=== PATIENT | female | born 2000 | race Caucasian/White ===

== ENCOUNTER 2019-01-20 13:01 | Emergency (ER) | payer OTHER, MEDICAID, SELFPAY ==
[2019-01-20 13:34] VITALS: BP 120/76; PULSE 80; RESP 16; TEMP 37.1; O2SAT 99; BMI 40.1
[2019-01-20 14:03] LABS: Add Manual Diff / Slide Review NO; Basophils Absolute Auto 100 /uL (0-100); Basophils Percent Auto 0.6 % (0-2); Eosinophils Absolute Auto 0 /uL (0-450); Eosinophils Percent Auto 0.3 % (2-4); Hematocrit 46.8 % (36-46); Hemoglobin 14.9 g/dL (12.0-16.0); Lymphocytes Absolute Auto 2500 /uL (1100-4500); Lymphocytes Percent Auto 20.2 % (25-40); Mean Corpuscular HGB Conc 31.7 % (30-36); Mean Corpuscular Hemoglobin 26.2 PG (26-34); Mean Corpuscular Volume 82.7 fL (80-100); Monocytes Absolute Auto 700 /uL (0-900); Monocytes Percent Auto 5.3 % (3-14); Neutrophils Absolute Auto 9200 /uL (1500-7000); Neutrophils Percent Auto 73.6 % (50-75); Platelet Count 455 X10^3/uL (150-400); Red Blood Cell Count 5.67 X10^6/uL (4.0-5.2); Red Cell Distribution Width 13.5 % (11.6-14.8); White Blood Cell Count 12.5 X10^3/uL (4.5-11.0)
[2019-01-20 14:11] LABS: Alanine Aminotransferase 20 IU/L (9-52); Albumin 4.7 g/dL (3.5-5.0); Albumin Globulin Ratio 1.2 (1.0-2.8); Alkaline Phosphatase 42 U/L (38-126); Aspartate Aminotransferase 25 IU/L (14-36); BUN Creatinine Ratio 16.7 (6-22); Bilirubin Total 0.6 mg/dL (0.2-1.3); Blood Urea Nitrogen 10 mg/dL (7-17); Calcium 9.5 mg/dL (8.4-10.2); Carbon Dioxide 25 mmol/L (22-32); Chloride 105 mmol/L (98-107); Estimated Glomerular Filt Rate > 60.0 mL/min (>60); Globulin 3.9 g/dL (1.7-4.1); Glucose 94 mg/dL (70-100); HEMOLYSIS 34 (0-50); Lipase 87 U/L (23-300); Potassium 3.9 mmol/L (3.4-5.1); Sodium 141 mmol/L (137-145); Total Protein 8.6 g/dL (6.3-8.2)
--- NOTE | 2019-01-20 15:55 | ED.ABDPAIN ---
HPI - Abdominal Pain General Chief Complaint: Abdominal Pain Stated Complaint: mid and left quad pain x2 days Time Seen by Provider: 01/20/19 15:54 Source: patient and family (Mother) Mode of arrival: ambulatory Limitations: no limitations History of Present Illness HPI narrative: This is a 18-year-old female comes to the emergency department with complaint of abdominal pain patient states that sort of epigastric radiates a little bit towards the left side. It is all in the front none in the back. She does not any flank pain. Patient states no fevers. She has occasionally felt nauseated, no vomiting. She denies any diarrhea, no constipation, no black or bloody stools. She denies any urinary symptoms such as urgency frequency or dysuria. She denies any vaginal bleeding or discharge. States she did just finished her period recently. She had her typical cramping but nothing else new. She has had these symptoms once in the past she was seen at [facility] had a CT scan which was negative. She has not followed up any since then. The most recent episode started on and has continued, today was little bit worse so she came in for a bowel. She did ask if weight loss can cause any of these issues she has had 59 lb weight loss since April of 2018. She states that she also eats a lot of hot sauce. Related Data Allergies Allergy/AdvReac Type Severity Reaction Status Date / Time No Known Drug Allergies Allergy Verified 01/20/19 13:34 Review of Systems Review of Systems ROS Unobtainable: All systems reviewed & are unremarkable except as noted in HPI and below Constitutional Denies chills, Denies fever(s), Denies lethargy and Denies weakness Gastrointestinal Gastrointestinal: Reports abdominal pain, Denies melena, Denies hematochezia, Denies change in bowel habits, Denies tenesmus, Denies change in stool character, Denies constipation, Denies diarrhea, Reports nausea (Not regularly) and Denies vomiting Genitourinary Denies abnormal menses, Denies abnormal vaginal bleeding, Denies hematuria, Denies dysuria, Denies pelvic pain, Denies flank pain, Denies urinary incontinence, Denies urinary hesitancy, Denies urinary urgency and Denies vaginal discharge Musculoskeletal Denies back pain Neurologic Denies weakness [facility] Social History Smoking Status: Never smoker Social History Smoking Status: Never smoker Exam Narrative Exam Narrative: GENERAL: Alert and oriented x three, obese, well-appearing female in no acute distress HEENT: Head normocephalic, atraumatic, EOMI, pupils reactive, face symmetric, moist mucous membranes NECK: Supple, full range of motion CARDIOVASCULAR: Regular rate and rhythm without murmurs, rubs or gallops. RESPIRATORY: Breath sounds equal bilaterally, no wheezes rales or rhonchi. ABDOMEN: Soft, very mildly in the left upper quadrant. Normoactive bowel sounds all 4 quadrants. No guarding or rebound, rigidity, no mass : No CVA tenderness EXTREMITIES: Normal range of motion, no clubbing or edema. Neurovascularly intact NEUROLOGICAL: Cranial nerves II through XII grossly intact. Moving all extremities SKIN: Warm, dry, no petechiae, no rashes or lesions. Initial Vital Signs Initial Vital Signs: Vital Signs Temperature 98.7 F 01/20/19 13:34 Pulse Rate 80 01/20/19 13:34 Respiratory Rate 16 01/20/19 13:34 Blood Pressure 120/76 01/20/19 13:34 Pulse Oximetry 99 01/20/19 13:34 Course Orders Ordered: ED Orders 01/20/19 13:45 Complete Blood Count AUTO DIFF Stat Comprehensive Metabolic Panel Stat Lipase Stat Urine Culture Stat Urine Microscopic Stat 01/20/19 16:09 US abdomen complete Stat Discontinued Medications Ketorolac Tromethamine (Toradol) 30 mg IV NOW ONE Stop: 01/20/19 16:10 Last Admin: 01/20/19 16:16 Dose: 30 mg Vital Signs - 8 hr 01/20/19 13:34 01/20/19 16:29 01/20/19 18:07 Temperature 98.7 F Pulse Rate 80 78 85 Respiratory Rate 16 15 20 Blood Pressure 120/76 121/69 Blood Pressure [Right Arm] 106/62 Pulse Oximetry 99 99 99 MDM - Abdominal Pain Lab Data Attestation: I reviewed the patient's lab results. Result diagrams: 01/20/19 13:45 01/20/19 13:45 Lab Results 01/20/19 01/20/19 01/20/19 Range/Units 13:45 13:45 13:45 WBC 12.5 H (4.5-11.0) X10^3/uL RBC 5.67 H (4.0-5.2) X10^6/uL Hgb 14.9 (12.0-16.0) g/dL Hct 46.8 H (36-46) % MCV 82.7 (80-100) fL MCH 26.2 (26-34) PG MCHC 31.7 (30-36) % RDW 13.5 (11.6-14.8) % Plt Count 455 H (150-400) X10^3/uL Neut % (Auto) 73.6 (50-75) % Lymph % (Auto) 20.2 L (25-40) % [place] % (Auto) 5.3 (3-14) % Eos % (Auto) 0.3 L (2-4) % Baso % (Auto) 0.6 (0-2) % Neut # (Auto) 9200 H (9586-4545) /uL Lymph # (Auto) 2500 (1616-0070) /uL [place] # (Auto) 700 (0-900) /uL Eos # (Auto) 0 (0-450) /uL Baso # (Auto) 100 (0-100) /uL Sodium 141 (137-145) mmol/L Potassium 3.9 (3.4-5.1) mmol/L Chloride 105 (98-107) mmol/L Carbon Dioxide 25 (22-32) mmol/L BUN 10 (7-17) mg/dL Creatinine 0.60 (0.52-1.04) mg/dL Estimated GFR > 60.0 (>60) mL/min BUN/Creatinine Ratio 16.7 (6-22) Glucose 94 (70-100) mg/dL Calcium 9.5 (8.4-10.2) mg/dL Total Bilirubin 0.6 (0.2-1.3) mg/dL AST 25 (14-36) IU/L ALT 20 (9-52) IU/L Alkaline Phosphatase 42 (38-126) U/L Total Protein 8.6 H (6.3-8.2) g/dL Albumin 4.7 (3.5-5.0) g/dL Globulin 3.9 (1.7-4.1) g/dL Albumin/Globulin Ratio 1.2 (1.0-2.8) Lipase 87 (23-300) U/L Urine RBC 0-1/hpf (0-5/HPF) Urine WBC 1-5/hpf (0-5/HPF) Ur Squamous Epith Cells 0-1 /hpf (0-5/HPF) Urine Bacteria Occasional (0-1) (None) Ur Culture Indicated? Specimen cultured Point of care testing: Point of Care Testing Test Results Negative Urine Dip Bedside Urine Glucose Negative Bedside Urine Bilirubin - Negative Bedside Urine Ketone - Negative Urine Specific [place] 1.015 Bedside Urine Occult Blood - Negative Bedside Urine pH 7.5 Bedside Urine Protein - Negative Bedside Urine Urobilinogen - Negative Bedside Urine Nitrite - Negative Bedside Urine Leukocytes +/- 15 Esterase Imaging Data US - abdomen: Radiologist's impression: prelim read is negative. [address] [address] Ultrasound Report Signed Patient: Edi Chappell PMR#: [id number] : 2000Acct:[id number] Age/Sex: 18 / FDate of Service: 01/20/19 Loc: ED Accession Number: [id number] Procedure: US abdomen complete Ordering Provider: Esther Nieves D.O. PROCEDURE: US ABDOMEN COMPLETE INDICATIONS: EPIGASTRIC/LEFT SIDE PAIN TECHNIQUE: Real-time scanning was performed of the abdominal and retroperitoneal organs, with image documentation. COMPARISON: None. FINDINGS: Liver: Liver is normal in size and homogeneous in echotexture. Gallbladder: No findings of gallstones or sludge are seen. The gallbladder wall is not thickened, measuring 3 mm or less. No specific pericholecystic fluid is seen. The sonographic Rubin sign is negative. Biliary ducts: Intrahepatic bile ducts are non-dilated. Extrahepatic bile duct caliber measures 4 mm. Normal is 6-7 mm or less in diameter, or 10 mm or less post-cholecystectomy. Pancreas: Not seen, obscured by overlying bowel gas. Spleen: Spleen is normal in size and homogeneous in echotexture. Kidneys: Kidneys are normal in size and echotexture. Right kidney measures 11.2 cm long; left kidney measures 10.6 cm long. No hydronephrosis or nephrolithiasis. No solid masses. The renal cortex measures within normal limits for thickness. Aorta: Visualized aorta is normal in caliber at less than 3 cm. Iliacs: Proximal common iliac arteries are normal in caliber at less than 2.5 cm. IVC: Intrahepatic inferior vena cava is patent. Miscellaneous: No free abdominal fluid. IMPRESSION: Normal abdominal ultrasound, without an imaging explanation of the patient's presenting history of epigastric/left-sided pain. Dictated by: Kris Garnica M.D. on 01/20/2019 at 16:28 Approved by: Kris Garnica M.D. on 01/20/2019 at 16:30 [facility] Narrative Medical decision making narrative: Patient's lab work shows a slightly elevated white count at 12, urine shows some leukocyte esterase. Patient has not had any urinary symptoms, she is sort of left upper abdominal pain as well as into the left side. We discussed the recent negative CT a month ago with the same symptoms I would defer ultrasound today to the decrease her radiation risk as her abdominal exam is benign. She has barely any tenderness and I would not appreciated any unless she verbally told me. She does not make any facial changes when palpating. Rest of patient's lab work does not show any acute changes. Ultrasound is negative. Microscopic urine does not show any clear changes was sent for culture. Updated patient. She is comfortable returning home pain was improved after Toradol kind of increased again after she had the ultrasound. We discussed signs and symptoms reasons to return. Her and mother both at bedside and comfortable with this. Discharge Plan Departure Patient Disposition: Home Clinical Impression: Abdominal pain Discharge Date/Time: 01/20/19 18:08 Interventions: ED Discharge Assessment Last Done: 01/20/19 18:07 Instructions: DI for Abdominal Pain-Adult Activity Restrictions/Additional Instructions: Follow-up with primary care in the next week for recheck. If you continue to have symptoms you may need endoscopy or colonoscopy for follow-up with OBGYN as there are several potential causes for your pain. Your urine shows leukocyte esterase but no other clear signs of infection, your urine was sent for culture and will result in 48hours. If positive you will receive a call back to start you on antibiotics. You may take up to 800 mg of ibuprofen every 8 hours and or Tylenol up to a 1000 mg every 8 hours as needed for pain. Return to the emergency department for fevers greater than 100.4 F, rapidly worsening pain, persistent vomiting, black or bloody stools, new flank pain, back pain, increasing abdominal pain, or any other new or concerning symptoms.
--- NOTE | 2019-01-20 16:09 | DI.US.S_ITS ---
PROCEDURE: US ABDOMEN COMPLETE INDICATIONS: EPIGASTRIC/LEFT SIDE PAIN TECHNIQUE: Real-time scanning was performed of the abdominal and retroperitoneal organs, with image documentation. COMPARISON: None. FINDINGS: Liver: Liver is normal in size and homogeneous in echotexture. Gallbladder: No findings of gallstones or sludge are seen. The gallbladder wall is not thickened, measuring 3 mm or less. No specific pericholecystic fluid is seen. The sonographic Rubin sign is negative. Biliary ducts: Intrahepatic bile ducts are non-dilated. Extrahepatic bile duct caliber measures 4 mm. Normal is 6-7 mm or less in diameter, or 10 mm or less post-cholecystectomy. Pancreas: Not seen, obscured by overlying bowel gas. Spleen: Spleen is normal in size and homogeneous in echotexture. Kidneys: Kidneys are normal in size and echotexture. Right kidney measures 11.2 cm long; left kidney measures 10.6 cm long. No hydronephrosis or nephrolithiasis. No solid masses. The renal cortex measures within normal limits for thickness. Aorta: Visualized aorta is normal in caliber at less than 3 cm. Iliacs: Proximal common iliac arteries are normal in caliber at less than 2.5 cm. IVC: Intrahepatic inferior vena cava is patent. Miscellaneous: No free abdominal fluid. IMPRESSION: Normal abdominal ultrasound, without an imaging explanation of the patient's presenting history of epigastric/left-sided pain. Dictated by: Kris Garnica M.D. on 01/20/2019 at 16:28 Approved by: Kris Garnica M.D. on 01/20/2019 at 16:30
--- NOTE | 2019-01-20 16:13 | ED_ITS ---
HPI - Abdominal Pain General Chief Complaint: Abdominal Pain Stated Complaint: mid and left quad pain x2 days Time Seen by Provider: 01/20/19 15:54 Source: patient and family (Mother) Mode of arrival: ambulatory Limitations: no limitations History of Present Illness HPI narrative: This is a 18-year-old female comes to the emergency department with complaint of abdominal pain patient states that sort of epigastric radiates a little bit towards the left side. It is all in the front none in the back. She does not any flank pain. Patient states no fevers. She has occasionally felt nauseated, no vomiting. She denies any diarrhea, no constipation, no black or bloody stools. She denies any urinary symptoms such as urgency frequency or dysuria. She denies any vaginal bleeding or discharge. States she did just finished her period recently. She had her typical cramping but nothing else new. She has had these symptoms once in the past she was seen at [facility] had a CT scan which was negative. She has not followed up any since then. The most recent episode started on and has continued, today was little bit worse so she came in for a bowel. She did ask if weight loss can cause any of these issues she has had 59 lb weight loss since April of 2018. She states that she also eats a lot of hot sauce. Related Data Allergies Allergy/AdvReac Type Severity Reaction Status Date / Time No Known Drug Allergies Allergy Verified 01/20/19 13:34 Review of Systems Review of Systems ROS Unobtainable: All systems reviewed & are unremarkable except as noted in HPI and below Constitutional Denies chills, Denies fever(s), Denies lethargy and Denies weakness Gastrointestinal Gastrointestinal: Reports abdominal pain, Denies melena, Denies hematochezia, Denies change in bowel habits, Denies tenesmus, Denies change in stool character, Denies constipation, Denies diarrhea, Reports nausea (Not regularly) and Denies vomiting Genitourinary Denies abnormal menses, Denies abnormal vaginal bleeding, Denies hematuria, Denies dysuria, Denies pelvic pain, Denies flank pain, Denies urinary incontinence, Denies urinary hesitancy, Denies urinary urgency and Denies vaginal discharge Musculoskeletal Denies back pain Neurologic Denies weakness [facility] Social History Smoking Status: Never smoker Social History Smoking Status: Never smoker Exam Narrative Exam Narrative: GENERAL: Alert and oriented x three, obese, well-appearing female in no acute distress HEENT: Head normocephalic, atraumatic, EOMI, pupils reactive, face symmetric, moist mucous membranes NECK: Supple, full range of motion CARDIOVASCULAR: Regular rate and rhythm without murmurs, rubs or gallops. RESPIRATORY: Breath sounds equal bilaterally, no wheezes rales or rhonchi. ABDOMEN: Soft, very mildly in the left upper quadrant. Normoactive bowel sounds all 4 quadrants. No guarding or rebound, rigidity, no mass : No CVA tenderness EXTREMITIES: Normal range of motion, no clubbing or edema. Neurovascularly intact NEUROLOGICAL: Cranial nerves II through XII grossly intact. Moving all extremities SKIN: Warm, dry, no petechiae, no rashes or lesions. Initial Vital Signs Initial Vital Signs: Vital Signs Temperature 98.7 F 01/20/19 13:34 Pulse Rate 80 01/20/19 13:34 Respiratory Rate 16 01/20/19 13:34 Blood Pressure 120/76 01/20/19 13:34 Pulse Oximetry 99 01/20/19 13:34 Course Orders Ordered: ED Orders 01/20/19 13:45 Complete Blood Count AUTO DIFF Stat Comprehensive Metabolic Panel Stat Lipase Stat Urine Culture Stat Urine Microscopic Stat 01/20/19 16:09 US abdomen complete Stat Discontinued Medications Ketorolac Tromethamine (Toradol) 30 mg IV NOW ONE Stop: 01/20/19 16:10 Last Admin: 01/20/19 16:16 Dose: 30 mg Vital Signs - 8 hr 01/20/19 13:34 01/20/19 16:29 01/20/19 18:07 Temperature 98.7 F Pulse Rate 80 78 85 Respiratory Rate 16 15 20 Blood Pressure 120/76 121/69 Blood Pressure [Right Arm] 106/62 Pulse Oximetry 99 99 99 MDM - Abdominal Pain Lab Data Attestation: I reviewed the patient's lab results. Result diagrams: 01/20/19 13:45 01/20/19 13:45 Lab Results 01/20/19 01/20/19 01/20/19 Range/Units 13:45 13:45 13:45 WBC 12.5 H (4.5-11.0) X10^3/uL RBC 5.67 H (4.0-5.2) X10^6/uL Hgb 14.9 (12.0-16.0) g/dL Hct 46.8 H (36-46) % MCV 82.7 (80-100) fL MCH 26.2 (26-34) PG MCHC 31.7 (30-36) % RDW 13.5 (11.6-14.8) % Plt Count 455 H (150-400) X10^3/uL Neut % (Auto) 73.6 (50-75) % Lymph % (Auto) 20.2 L (25-40) % [place] % (Auto) 5.3 (3-14) % Eos % (Auto) 0.3 L (2-4) % Baso % (Auto) 0.6 (0-2) % Neut # (Auto) 9200 H (7513-6989) /uL Lymph # (Auto) 2500 (9646-7143) /uL [place] # (Auto) 700 (0-900) /uL Eos # (Auto) 0 (0-450) /uL Baso # (Auto) 100 (0-100) /uL Sodium 141 (137-145) mmol/L Potassium 3.9 (3.4-5.1) mmol/L Chloride 105 (98-107) mmol/L Carbon Dioxide 25 (22-32) mmol/L BUN 10 (7-17) mg/dL Creatinine 0.60 (0.52-1.04) mg/dL Estimated GFR > 60.0 (>60) mL/min BUN/Creatinine Ratio 16.7 (6-22) Glucose 94 (70-100) mg/dL Calcium 9.5 (8.4-10.2) mg/dL Total Bilirubin 0.6 (0.2-1.3) mg/dL AST 25 (14-36) IU/L ALT 20 (9-52) IU/L Alkaline Phosphatase 42 (38-126) U/L Total Protein 8.6 H (6.3-8.2) g/dL Albumin 4.7 (3.5-5.0) g/dL Globulin 3.9 (1.7-4.1) g/dL Albumin/Globulin Ratio 1.2 (1.0-2.8) Lipase 87 (23-300) U/L Urine RBC 0-1/hpf (0-5/HPF) Urine WBC 1-5/hpf (0-5/HPF) Ur Squamous Epith Cells 0-1 /hpf (0-5/HPF) Urine Bacteria Occasional (0-1) (None) Ur Culture Indicated? Specimen cultured Point of care testing: Point of Care Testing Test Results Negative Urine Dip Bedside Urine Glucose Negative Bedside Urine Bilirubin - Negative Bedside Urine Ketone - Negative Urine Specific [place] 1.015 Bedside Urine Occult Blood - Negative Bedside Urine pH 7.5 Bedside Urine Protein - Negative Bedside Urine Urobilinogen - Negative Bedside Urine Nitrite - Negative Bedside Urine Leukocytes +/- 15 Esterase Imaging Data US - abdomen: Radiologist's impression: prelim read is negative. [address] [address] Ultrasound Report Signed Patient: Edi Chappell PMR#: [id number] : 2000Acct:[id number] Age/Sex: 18 / FDate of Service: 01/20/19 Loc: ED Accession Number: [id number] Procedure: US abdomen complete Ordering Provider: Esther Nieves D.O. PROCEDURE: US ABDOMEN COMPLETE INDICATIONS: EPIGASTRIC/LEFT SIDE PAIN TECHNIQUE: Real-time scanning was performed of the abdominal and retroperitoneal organs, with image documentation. COMPARISON: None. FINDINGS: Liver: Liver is normal in size and homogeneous in echotexture. Gallbladder: No findings of gallstones or sludge are seen. The gallbladder wall is not thickened, measuring 3 mm or less. No specific pericholecystic fluid is seen. The sonographic Rubin sign is negative. Biliary ducts: Intrahepatic bile ducts are non-dilated. Extrahepatic bile duct caliber measures 4 mm. Normal is 6-7 mm or less in diameter, or 10 mm or less post-cholecystectomy. Pancreas: Not seen, obscured by overlying bowel gas. Spleen: Spleen is normal in size and homogeneous in echotexture. Kidneys: Kidneys are normal in size and echotexture. Right kidney measures 11.2 cm long; left kidney measures 10.6 cm long. No hydronephrosis or nephrolithiasis. No solid masses. The renal cortex measures within normal limits for thickness. Aorta: Visualized aorta is normal in caliber at less than 3 cm. Iliacs: Proximal common iliac arteries are normal in caliber at less than 2.5 cm. IVC: Intrahepatic inferior vena cava is patent. Miscellaneous: No free abdominal fluid. IMPRESSION: Normal abdominal ultrasound, without an imaging explanation of the patient's presenting history of epigastric/left-sided pain. Dictated by: Kris Garnica M.D. on 01/20/2019 at 16:28 Approved by: Kris Garnica M.D. on 01/20/2019 at 16:30 [facility] Narrative Medical decision making narrative: Patient's lab work shows a slightly elevated white count at 12, urine shows some leukocyte esterase. Patient has not had any urinary symptoms, she is sort of left upper abdominal pain as well as into the left side. We discussed the recent negative CT a month ago with the same symptoms I would defer ultrasound today to the decrease her radiation risk as her abdominal exam is benign. She has barely any tenderness and I would not appreciated any unless she verbally told me. She does not make any facial changes when palpating. Rest of patient's lab work does not show any acute changes. Ultrasound is negative. Microscopic urine does not show any clear changes was sent for culture. Updated patient. She is comfortable returning home pain was improved after Toradol kind of increased again after she had the ultrasound. We discussed signs and symptoms reasons to return. Her and mother both at bedside and comfortable with this. Discharge Plan Departure Patient Disposition: Home Clinical Impression: Abdominal pain Discharge Date/Time: 01/20/19 18:08 Interventions: ED Discharge Assessment Last Done: 01/20/19 18:07 Instructions: DI for Abdominal Pain-Adult Activity Restrictions/Additional Instructions: Follow-up with primary care in the next week for recheck. If you continue to have symptoms you may need endoscopy or colonoscopy for follow-up with OBGYN as there are several potential causes for your pain. Your urine shows leukocyte esterase but no other clear signs of infection, your urine was sent for culture and will result in 48hours. If positive you will receive a call back to start you on antibiotics. You may take up to 800 mg of ibuprofen every 8 hours and or Tylenol up to a 1000 mg every 8 hours as needed for pain. Return to the emergency department for fevers greater than 100.4 F, rapidly worsening pain, persistent vomiting, black or bloody stools, new flank pain, back pain, increasing abdominal pain, or any other new or concerning symptoms.
[2019-01-20] MEDS: KETOROLAC 60 MG/2 ML VIAL 30 MG IV (16:16)
[2019-01-20 16:29] VITALS: BP 106/62; PULSE 78; RESP 15; O2SAT 99
[2019-01-20 17:22] LABS: RBC Urine 0-1/HPF (0-5/HPF)
[2019-01-20 17:23] LABS: Bacteria Urine Occasional (0-1); Culture Indicated Urine Specimen Cultured; Squamous Epithelial Cell Urine 0-1 /HPF (0-5/HPF); WBC Urine 1-5/HPF (0-5/HPF)
[2019-01-20 18:07] VITALS: BP 121/69; PULSE 85; RESP 20; O2SAT 99
== END 2019-01-20 18:08 | disposition home or self-care (01) ==
PROVIDERS: Emergency Provider Emergency Medicine
DX: R10.9 Unspecified abdominal pain (principal)
CPT/HCPCS: 76700; 80053; 81003; 81015; 81025; 83690; 85025; 87086; 96374; 99282; 99284; J1885